=== PATIENT | female | born 1945 | race Caucasian/White ===

== ENCOUNTER 2017-09-09 07:31 | Day surgery (SDC) | payer OTHER, MEDICARE ==
[~2017-09-09] VITALS: Ht 165.1 cm; Wt 103.0 kg
[~2017-09-09 07:31] MED LIST: ASPIR 8181 M1 PO; ASPIRIN EC325 MG PO; CELEBREX200 MG PO; CRANBERRY TABL1 EACH PO; ENDOCET 5-3251 EACH PO; GLIPIZIDE5 MG PO; GLUCOPHAGE500 MG PO; HYDROCHLOROTH12.5 M3 PO; HYZAAR 50-121 TABLET PO; IRON325 M1 PO; LO-DOSE ASPIRIN81 M1 PO; METFORMIN HCL500 MG PO; PRAVASTATIN SOD40 MG PO; PROBIOTIC1 EAC3 PO; SENNA-TIME S T1 EACH PO
[2017-09-09 08:01] VITALS: BP 126/64
[2017-09-09] MEDS ORDERED: DILAUDID4 MG PO (16:28)
[2017-09-09 17:50] VITALS: BP 174/82
[2017-09-09 18:56] VITALS: BP 158/72
== END 2017-09-09 19:26 | disposition home or self-care (01) ==
LOC: RAD 07:31 → SDC 07:31
PROVIDERS: Surgery
DX: C50.811 Malignant neoplasm of overlapping sites of right female breast (principal); Z17.0 Estrogen receptor positive status [ER+]; C77.3 Secondary and unspecified malignant neoplasm of axilla and upper limb lymph nodes; I10 Essential (primary) hypertension; E11.9 Type 2 diabetes mellitus without complications; Z87.891 Personal history of nicotine dependence; Z79.84 Long term (current) use of oral hypoglycemic drugs
CPT/HCPCS: 78195; 78999; 82948; A9541; J0690; J1100; J1170; J2405; J3010; S0020